=== PATIENT | female | born 1945 | race Hispanic/Latino ===

== ENCOUNTER 2023-12-15 02:52 | Inpatient (IN) | payer MEDICARE ==
[2023-12-15] MEDS ORDERED: niCARdipine 25 MG/10 ML SDV ONE (03:20)
[2023-12-15 03:24] LABS: #Basophils 0.04 10x3/uL (0.0-0.2); %Basophils 0.4 % (0.0-1.0); %Eosinophils 1.6 % (0.0-10.0); %Lymphocytes 16.7 % (21.0-51.0); %Monocytes 4.9 % (0.0-10.0); %Neutrophils 76.1 % (42.0-75.0); Hematocrit 39.9 % (36.0-47.0); Hemoglobin 12.1 g/dL (12.0-16.0); Mean Corpuscular HGB CONC 30.3 g/dL (32.0-36.0); Mean Corpuscular Hemoglobin 24.5 pg (27.0-31.0); Mean Corpuscular Volume 80.8 fL (78.0-98.0); Mean Platelet Volume 9.6 fL (7.4-10.4); Platelet Count 344 10x3/uL (130-400); RBC Distribution Width 16.5 % (11.5-14.5); Red Blood Cell (RBC) Count 4.94 mill/uL (4.20-5.40)
[2023-12-15] MEDS ORDERED: fentaNYL 50 mcg/mL 1 mL Vial ONE ×2 (03:27→03:50)
[2023-12-15 03:37] LABS: ALT (SGPT) 29 U/L (8-55); AST (SGOT) 41 U/L (5-34); Albumin 3.3 g/dL (3.4-4.8); Alkaline Phosphatase 97 U/L (40-110); Anion Gap 16 mmol/L (10-20); BUN (Urea Nitrogen) 23 mg/dL (9.8-20.1); Bilirubin, Total 0.5 mg/dL (0.2-1.2); Calc. Creatinine Clearance 0 mL/min (70-130); Calcium 9.5 mg/dL (7.8-10.44); Carbon Dioxide 24 mmol/L (23-31); Chloride 100 mmol/L (98-107); Estimated GFR 72; Globulin 3.8 g/dL (2.4-3.5); Glucose 176 mg/dL (83-110); Potassium 4.1 mmol/L (3.5-5.1); Protein, Total 7.1 g/dL (5.8-8.1); Sodium 136 mmol/L (136-145)
[2023-12-15 03:38] LABS: INR-International Normal Ratio 1.1; Prothrombin Time 14.1 sec (12.0-14.7)
[2023-12-15 03:39] LABS: PTT 35.7 sec (22.9-36.1)
[2023-12-15 03:41] LABS: Actual Bicarbonate (HCO3a) 23.4 mEq/L (22-28); Analyzer IN Cardio ER; Base Excess (BEa) 0.9 mEq/L (-2.0 to +3.0); CO2 Tension 30.9 mmHg (35.0-45.0); Calcium, Ionized (arterial) 1.17 mmol/L (1.12-1.30); Carboxyhemoglobin (COHb) 0.3 gm% (0.0-3.0); Hematocrit-ABG 35 % (36.0-47.0); O2 Tension (PaO2), arterial 253.4 mmHg (> 60.0); Potassium - ABG Lab 4.03 mmol/L (3.70-5.30); pH, Arterial 7.498 (7.35-7.45)
[2023-12-15 03:43] LABS: Troponin I 0.072 ng/mL (< 0.028)
[2023-12-15 03:52] LABS: ALV-art Gradient 64.475 mmHg (0-20); Puncture Site Left Brachial artery
[2023-12-15] MEDS ORDERED: manNITOL 20% 500 ML ONE (03:54)
[2023-12-15] MEDS ORDERED: Labetalol HCl 100 MG/20 ML VIAL SLOW IVP PRN (04:02)
[2023-12-15] MEDS ORDERED: hydrALAZINE 20 MG/ML VIAL SLOW IVP PRN (04:02)
[2023-12-15] MEDS ORDERED: PROPOFOL 0 ML ONE (04:40)
[2023-12-15] MEDS ORDERED: Propofol 1,000 MG/100 ML VIAL IV ONE (04:41)
[2023-12-15] MEDS ORDERED: Ondansetron PF 4 MG/2 ML Vial IVP PRN (05:38)
[2023-12-15] MEDS ORDERED: niCARdipine 25 MG in Sodium Chloride 0.9% 250 ML 250 ML IVPB SCH (06:00)
[2023-12-15] MEDS ORDERED: Morphine 2 MG/ML VIAL SLOW IVP PRN (06:00)
[2023-12-15] MEDS ORDERED: Ventilator Sedation Protocol 1 EACH FS SCH (06:00)
[2023-12-15] MEDS ORDERED: DISCONTINUE PREVIOUS NARCOTIC PAIN MEDICATIONS AND BENZODIAZEPINES FS SCH (06:00)
[2023-12-15] MEDS ORDERED: Propofol BOLUS 1,000 MG/100 ML VIAL IV PRN (06:00)
[2023-12-15] MEDS ORDERED: Lorazepam 2 MG/ML VIAL SLOW IVP PRN (06:00)
[2023-12-15] MEDS ORDERED: Fentanyl BOLUS 250 ML IVPB PRN (06:00)
[2023-12-15] MEDS: NOREPINEPHRINE 8 MG/250 ML-D5W 250 ML ONE (06:01)
[2023-12-15 07:15] VITALS: BMI 24.3
[2023-12-15] MEDS: HUM PROTHROMBIN CPLX IV SCH (08:14)
[2023-12-15] MEDS: ADMIXTURE FEE IV SCH (08:14)
[2023-12-15] MEDS: [UNRECOGNIZED DRUG - OTHER] IV SCH (08:14)
[2023-12-15] MEDS: HUM PROTHROMBIN CPLX(PCC)4FACT 2,000 UNITS in Admixture Fee 1 EACH IV SCH (08:15)
[2023-12-15 08:38] LABS: Magnesium 2.2 mg/dL (1.6-2.6)
[2023-12-15] MEDS ORDERED: Sodium Chloride 0.9% 500 ML IV SCH (08:45)
[2023-12-15] MEDS ORDERED: NOREPINEPHRINE 8 MG/250 ML-D5W 250 ML IVPB SCH (08:45)
[2023-12-15 11:01] LABS: Troponin I 0.292 ng/mL (< 0.028)
[2023-12-15 11:37] LABS: Critical Call Chem Troponin I RESULT DECREASING
[2023-12-15 13:00] VITALS: BMI 24.3
[2023-12-15] MEDS: Famotidine/PF 20 mg/2ml Vial SLOW IVP SCH (20:06)
[2023-12-15] MEDS: Fentanyl CADD 100 ML IV SCH (23:34)
[2023-12-16 04:54] LABS: Anion Gap 13 mmol/L (10-20); BUN (Urea Nitrogen) 19 mg/dL (9.8-20.1); Calc. Creatinine Clearance 66 mL/min (70-130); Carbon Dioxide 22 mmol/L (23-31); Chloride 106 mmol/L (98-107); Estimated GFR 89; Glucose 123 mg/dL (83-110); Potassium 3.6 mmol/L (3.5-5.1); Sodium 137 mmol/L (136-145)
[2023-12-16 06:27] LABS: #Basophils Less than 0.03 10x3/uL (0.0-0.2); #Eosinphils Less than 0.03 10x3/uL (0.0-0.7); %Basophils 0.3 % (0.0-1.0); %Lymphocytes 9.6 % (21.0-51.0); %Neutrophils 79.7 % (42.0-75.0); Hematocrit 29.1 % (36.0-47.0); Mean Corpuscular HGB CONC 30.9 g/dL (32.0-36.0); Mean Corpuscular Hemoglobin 24.4 pg (27.0-31.0); Mean Corpuscular Volume 78.9 fL (78.0-98.0); Mean Platelet Volume 9.9 fL (7.4-10.4); Platelet Count 233 10x3/uL (130-400); RBC Distribution Width 16.9 % (11.5-14.5); Red Blood Cell (RBC) Count 3.69 mill/uL (4.20-5.40)
[2023-12-16 08:08] LABS: Actual Bicarbonate (HCO3a) 24.9 mEq/L (22-28); Base Excess (BEa) 1.4 mEq/L (-2.0 to +3.0); CO2 Tension 34.8 mmHg (35.0-45.0); Calcium, Ionized (arterial) 1.12 mmol/L (1.12-1.30); Carboxyhemoglobin (COHb) 0.4 gm% (0.0-3.0); Hematocrit-ABG 28 % (36.0-47.0); Hemoglobin (Hb) 9.5 g/dL (12.0-16.0); O2 Tension (PaO2), arterial 154.4 mmHg (> 60.0); Potassium - ABG Lab 3.59 mmol/L (3.70-5.30); pH, Arterial 7.472 (7.35-7.45)
[2023-12-16 08:09] LABS: Puncture Site Right Radial artery
[2023-12-16] MEDS: Propofol 1,000 MG/100 ML VIAL IV PRN (08:29)
[2023-12-16] MEDS: Lactated Ringer's 1,000 ML IV SCH (08:29)
[2023-12-16 12:44] VITALS: TEMP 98.3
[2023-12-16 14:01] VITALS: BP 100/49
== END 2023-12-16 16:28 | disposition hospice, inpatient (51) | DRG 64 ==
LOC: ERS 02:52 → CCU 05:40
PROVIDERS: ADMIT Internal Medicine; ATTEND Hospitalist
PROC: 4A133R1 Monitoring of Arterial Saturation, Peripheral, Percutaneous Approach (ICD-10-PCS; principal; 2023-12-15)
PROC: 5A1945Z Respiratory Ventilation, 24-96 Consecutive Hours (ICD-10-PCS; 2023-12-15)
PROC: 0BH17EZ Insertion of Endotracheal Airway into Trachea, Via Natural or Artificial Opening (ICD-10-PCS; 2023-12-15)
DX: I60.9 Nontraumatic subarachnoid hemorrhage, unspecified (principal); J96.01 Acute respiratory failure with hypoxia; I48.20 Chronic atrial fibrillation, unspecified; I62.00 Nontraumatic subdural hemorrhage, unspecified; I25.10 Atherosclerotic heart disease of native coronary artery without angina pectoris; I10 Essential (primary) hypertension; Z66 Do not resuscitate; Z79.01 Long term (current) use of anticoagulants; Z88.8 Allergy status to other drugs, medicaments and biological substances; Z95.5 Presence of coronary angioplasty implant and graft; Z51.5 Encounter for palliative care
CPT/HCPCS: 31500; 36415; 36600; 43753; 51701; 70450; 71045; 80048; 80053; 82805; 83735; 84484; 85025; 85610; 85730; 86850; 86900; 86901; 93005; 94002; 94003; 96365; 96367; 96375; J2704; J3010; J3490; J7120; J7168; J7799